=== PATIENT | female | born 1945 | race Caucasian/White ===

== ENCOUNTER 2016-09-06 14:18 | Emergency (ER) | payer OTHER ==
[2016-09-06 14:34] VITALS: TEMP 98.1
--- NOTE | 2016-09-06 14:44 | CPEKG ---
Heart Rate: 61 RR Interval: 984 P-R Interval: 200 QRSD Interval: 82 QT Interval: 388 QTC Interval: 391 P [place]: 62 QRS [place]: -30 T Wave [place]: 37 EKG Severity - OTHERWISE NORMAL ECG - EKG Impression: SINUS RHYTHM EKG Impression: LEFT AXIS DEVIATION Electronically Signed By: Melo Flores 06-Sep-2016 15:27:33
--- NOTE | 2016-09-06 15:25 | EDPHY ---
H & P Stated Complaint: dizzy spell w/ cp Time Seen by Provider: 09/06/16 15:03 HPI/ROS: CHIEF COMPLAINT: Chest pain, presyncope HISTORY OF PRESENT ILLNESS: The patient presents to the emergency department after she developed an episode of left upper chest pain and presyncope earlier today. The patient does have a history of hypertension and has been compliant with her medications. She has had some low blood pressure readings over the past several days. The patient currently denies symptoms. She has had some epigastric discomfort over the past 4-5 days. She denies melena. She denies exertional chest pain. She denies exertional chest pain. The patient's history is somewhat limited by her short term memory loss and cognitive impairment. The patient was seen by her primary care provider reportedly performed a normal EKG in the office and referred the patient to the ED for further evaluation. REVIEW OF SYSTEMS: A comprehensive 10 point review of systems is otherwise negative aside from elements mentioned in the history of present illness. Source: Patient Exam Limitations: No limitations - Personal History Current Tetanus Diphtheria and Acellular Pertussis (TDAP): Unsure - Medical/Surgical History Hx Asthma: No Hx Chronic Respiratory Disease: No Hx Diabetes: No Hx Cardiac Disease: No Hx Renal Disease: No Hx Cirrhosis: No Hx Alcoholism: No Hx HIV/AIDS: No Hx Splenectomy or Spleen Trauma: No Other PMH: PANCREATITIS, CATERACT SURGERY, PAGETT DISEASE, INSOMINIA, hysterectomy, Dementia, HTN - Social History Smoking Status: Former smoker - Physical Exam Exam: General Appearance: Alert, no distress Eyes: Pupils equal and round no pallor or injection ENT, Mouth: Mucous membranes moist Respiratory: There are no retractions, lungs are clear to auscultation Cardiovascular: Regular rate and rhythm Gastrointestinal: Abdomen is soft and nontender, no masses, bowel sounds normal Neurological: A&O, normal motor function, normal sensory exam, normal cranial nerves Skin: Warm and dry, no rashes Musculoskeletal: Neck is supple nontender Extremities: symmetrical, full range of motion Constitutional: Initial Vital Signs Temperature (C) 36.7 C 09/06/16 14:31 Heart Rate 68 09/06/16 14:31 Respiratory Rate 18 09/06/16 14:31 Blood Pressure 145/79 H 09/06/16 14:31 O2 Sat (%) 95 09/06/16 14:31 O2 Delivery Mode Room Air Allergies/Adverse Reactions: Penicillins Allergy (Intermediate, Verified 09/08/15 10:02) cheese Allergy (Verified 09/06/16 14:30) Milk Containing Products [dairy] Allergy (Verified 09/06/16 14:30) Home Medications: Medication Instructions Recorded Herbals/Supplements -Info Only 1 ea PO DAILY 02/01/15 QUEtiapine FUMARATE [Seroquel 25 25 mg PO HS 02/01/15 mg (*)] Lisinopril 09/08/15 Labetalol HCl 09/06/16 Medical Decision Making - Diagnostics EKG Interpretation: EKG: Complete interpretation has been separately recorded in the [employer] archive. Summary impression: Sinus rhythm, no ischemic changes ED Course/Re-evaluation: The patient presents to the ED after an atypical episode of chest pain associated with mild vertigo. The patient's EKG is normal. Troponin is also negative. The patient has no risk factors for coronary artery disease. The patient is comfortable being discharged home and returning for recurrent pain. She would like to follow up with Cardiology for consideration of a treadmill stress test in the next 72 hours for further risk stratification. Differential Diagnosis: Differential diagnosis considered includes acute coronary syndrome, vertigo, pericarditis, myocarditis - Data Points Laboratory Results: Laboratory Results 09/06/16 15:20 09/06/16 15:20 09/06/16 09/06/16 15:20 15:20 WBC 8.72 10^3/uL 10^3/uL (3.80-9.50) RBC 4.53 10^6/uL 10^6/uL (4.18-5.33) Hgb 13.9 g/dL g/dL (12.6-16.3) Hct 42.3 % % (38.0-47.0) MCV 93.4 fL fL (81.5-99.8) MCH 30.7 pg pg (27.9-34.1) MCHC 32.9 g/dL g/dL (32.4-36.7) RDW 13.5 % % (11.5-15.2) Plt Count 237 10^3/uL 10^3/uL (150-400) MPV 12.2 fL H fL (8.7-11.7) Neut % (Auto) 70.1 % % (39.3-74.2) Lymph % (Auto) 14.9 % L % (15.0-45.0) [place] % (Auto) 12.5 % % (4.5-13.0) Eos % (Auto) 1.4 % % (0.6-7.6) Baso % (Auto) 0.9 % % (0.3-1.7) Nucleat RBC Rel Count 0.0 % % (0.0-0.2) Absolute Neuts (auto) 6.11 10^3/uL 10^3/uL (1.70-6.50) Absolute Lymphs (auto) 1.30 10^3/uL 10^3/uL (1.00-3.00) Absolute Monos (auto) 1.09 10^3/uL H 10^3/uL (0.30-0.80) Absolute Eos (auto) 0.12 10^3/uL 10^3/uL (0.03-0.40) Absolute Basos (auto) 0.08 10^3/uL 10^3/uL (0.02-0.10) Absolute Nucleated RBC 0.00 10^3/uL 10^3/uL (0-0.01) Immature Gran % 0.2 % % (0.0-1.1) Immature Gran # 0.02 10^3/uL 10^3/uL (0.00-0.10) Sodium 130 mEq/L L mEq/L (134-144) Potassium 4.9 mEq/L mEq/L (3.5-5.2) Chloride 102 mEq/L mEq/L (97-110) Carbon Dioxide 21 mEq/l L mEq/l (22-31) Anion Gap 7 mEq/L L mEq/L (8-16) BUN 38 mg/dL H mg/dL (7-23) Creatinine 1.3 mg/dL H mg/dL (0.6-1.0) Estimated GFR 40 Glucose 93 mg/dL mg/dL (70-100) Calcium 9.6 mg/dL mg/dL (8.5-10.4) Troponin I < 0.012 ng/mL ng/mL (0-0.034) Medications Given: Discontinued Medications Sodium Chloride (Ns) 1,000 mls @ 0 mls/hr IV ONCE ONE PRN Reason: Wide Open Stop: 09/06/16 16:00 Last Admin: 09/06/16 16:06 Dose: 1,000 mls Departure - Departure Disposition: Home, Routine, Self-Care Clinical Impression: Chest pain Qualifiers: Chest pain type: other chest pain Qualified Code(s): R07.89 - Other chest pain ; R07.8 - Other chest pain Condition: Good Instructions: Chest Pain (ED) Additional Instructions: 1. Based upon the testing done in the Emergency Department today we see no evidence of a heart attack. 2. We are unable to fully exclude coronary artery disease based upon the testing available in the Emergency Department. 3. For this reason, we would like you to be seen by cardiology for consideration of additional testing within the next 3 days. 4. Please contact the washery engineer you have been referred to schedule this appointment as soon as possible. Their offices are typically open from 8:30am- 5pm M-F. 5. Please return to the Emergency Department immediately for any recurrent chest pain, difficulty breathing or other concerns. Referrals: Parish Goodman MD [Primary Care Provider] - As per Instructions Won Burgos MD [Medical Doctor] - As per Instructions
[2016-09-06 15:27] LABS: % IMMATURE GRANULYOCYTES 0.2 % (0.0-1.1); ABSOLUTE IMMATURE GRANULOCYTES 0.02 10^3/uL (0.00-0.10); ADD DIFF? NO; ADD MORPH? NO; ADD SCAN? NO; ATYPICAL LYMPHOCYTE FLAG 0 (0-99); FRAGMENT RBC FLAG 0 (0-99); HEMATOCRIT 42.3 % (38.0-47.0); HEMOGLOBIN 13.9 g/dL (12.6-16.3); LEFT SHIFT FLG 0 (0-99); LIPEMIA HEMOLYSIS FLAG 80 (0-99); MEAN CELL HEMOGLOBIN 30.7 pg (27.9-34.1); MEAN CELL HEMOGLOBIN CONCENTR. 32.9 g/dL (32.4-36.7); MEAN CELL VOLUME 93.4 fL (81.5-99.8); MEAN PLATELET VOLUME 12.2 fL (8.7-11.7); PLATELET CLUMPS FLAG 10 (0-99); PLATELET COUNT 237 10^3/uL (150-400); RED BLOOD CELL COUNT 4.53 10^6/uL (4.18-5.33); RED CELL DISTRIBUTION WIDTH 13.5 % (11.5-15.2)
[2016-09-06 15:43] LABS: ANION GAP 7 mEq/L (8-16); CALCIUM 9.6 mg/dL (8.5-10.4); CARBON DIOXIDE 21 mEq/l (22-31); CHLORIDE 102 mEq/L (97-110); CREATININE 1.3 mg/dL (0.6-1.0); GLOMERULAR FILTRATION RATE 40; GLUCOSE 93 mg/dL (70-100); POTASSIUM 4.9 mEq/L (3.5-5.2); SODIUM 130 mEq/L (134-144)
[2016-09-06 15:55] LABS: TROPONIN I < 0.012 ng/mL (0-0.034)
[2016-09-06] MEDS ORDERED: NS 1,000 ML IV ONE ×2 (15:59)
[2016-09-06 17:03] VITALS: BP 134/80; PULSE 66; RESP 16; O2SAT 96
== END 2016-09-06 17:03 | disposition home or self-care (01) ==
DX: R07.89 Other chest pain (principal); I10 Essential (primary) hypertension; Z87.891 Personal history of nicotine dependence

== ENCOUNTER 2016-11-03 11:13 | Emergency (ER) | payer OTHER ==
[2016-11-03 11:19] VITALS: BP 146/88; PULSE 69; RESP 16; TEMP 97.3; O2SAT 95
--- NOTE | 2016-11-03 11:41 | EDPHY ---
H & P Time Seen by Provider: 11/03/16 11:23 HPI/ROS: HPI: Kate Vasquez is a 71 yrs, female who presents with Chief Complaint: abdominal pain Location: epigastric/RUQ Quality: sharp pain Duration: since last night Signs and Symptoms: no fever, no chills, no chest pain, no SOB, no N/V, no early satiety, no indigestion, no diarrhea Timing: sudden Severity: 6-12/16 Context: medical history of Paget disease. reports last night epigastric/RUQ pain. no related to food intake. eats bland/organic diet. believes it is her gallbladder "acting up." Modifying Factors: apple cider vinegar mild transient relief CT A/P scan reviewed 09/26/15: no GB disease. REVIEW OF SYSTEMS: Constitutional: No fever Eyes: No blurred vision Respiratory: No shortness of breath, no cough Cardiovascular: No chest pain Gastrointestinal: No nausea, no vomiting no diarrhea Genitourinary: No dysuria Extremities: No myalgias Neurologic: No weakness, no numbness Skin: No rashes Hematologic: No bruising, no bleeding Past Medical/Surgical History: Paget disease, insomnia, cataract surgery, hysterectomy. Smoking Status: Former smoker Physical Exam: CONSTITUTIONAL: pleasant well appearing white female, awake and alert, no obvious distress HEENT: Atraumatic and normocephalic, PERRL, EOMI. Tympanic membranes clear. . Oropharynx clear, no exudate and moist pink mucosa. Airway patent. No lymphadenopathy. No meningismus. Cardiovascular: Normal S1/S2, regular rate, regular rhythm, without murmur rub or gallop. PULMONARY/CHEST: Symmetrical and nontender. Clear to auscultation bilaterally Good air movement. No accessory muscle usage. ABDOMEN: Soft, nondistended, mild epigastric/RUQ tenderness to deep palpation, no rebound, no guarding, no peritoneal signs, no masses or organomegaly. No CVAT. EXTREMITIES: 2/2 pulses, no deformities, no clubbing, no cyanosis or edema. NEUROLOGICAL: no focal neuro deficits. GCS 15. SKIN: Warm and dry, no erythema. no rash. Good capillary refill. Constitutional: Initial Vital Signs Temperature (C) 36.3 C 11/03/16 11:17 Heart Rate 69 11/03/16 11:17 Respiratory Rate 16 11/03/16 11:17 Blood Pressure 146/88 H 11/03/16 11:17 O2 Sat (%) 95 11/03/16 11:17 O2 Delivery Mode Room Air Allergies/Adverse Reactions: Penicillins Allergy (Intermediate, Verified 09/08/15 10:02) cheese Allergy (Verified 09/06/16 14:30) Milk Containing Products [dairy] Allergy (Verified 09/06/16 14:30) Home Medications: Medication Instructions Recorded Herbals/Supplements -Info Only 1 ea PO DAILY 02/01/15 QUEtiapine FUMARATE [Seroquel 25 25 mg PO HS 02/01/15 mg (*)] Lisinopril 09/08/15 Labetalol HCl 09/06/16 Medical Decision Making - Diagnostics EKG Interpretation: 12 lead EKG: Indication: abdominal pain Rhythm: sinus rhythm [place]: left borderline QRS: normal ST segments: normal INTERPRETATION: no acute ischemic changes Comparison: no ECG to compare The 12 lead EKG was interpreted by myself. Imaging Results: Imaging Impressions Abdomen CT 11/03/16 11:35 Impression: 1. Constipation. 2. Diverticulosis without evidence of diverticulitis. 3. Additional findings as above. Findings discussed with Mary Ocasio PA-C on November 03, 2016 at 1309 hours. ED Course/Re-evaluation: labs, UA, CT A/P scan afebrile. no systemic signs patient politely declined IV Morphine labs unremarkable spoke with radiologist regarding CT A/P scan and no chanegs from 2016, large stool burden, diverticulosis passed PO trial suspect GERD advised MOM prn, refuses to start H2 amber/PPI; prefers more natural methods patient unable to give UA prior to discharge Differential Diagnosis: Abdominal pain including but not limited to Gallbladder disease, pancreatitis, GERD, appendicitis, cholecystitis, gastritis, constipation and urinary tract infection. - Data Points Laboratory Results: Laboratory Results 11/03/16 12:00 11/03/16 12:00 11/03/16 11/03/16 12:00 12:00 WBC 7.95 10^3/uL 10^3/uL (3.80-9.50) RBC 4.63 10^6/uL 10^6/uL (4.18-5.33) Hgb 14.5 g/dL g/dL (12.6-16.3) Hct 42.3 % % (38.0-47.0) MCV 91.4 fL fL (81.5-99.8) MCH 31.3 pg pg (27.9-34.1) MCHC 34.3 g/dL g/dL (32.4-36.7) RDW 13.3 % % (11.5-15.2) Plt Count 241 10^3/uL 10^3/uL (150-400) MPV 11.2 fL fL (8.7-11.7) Neut % (Auto) 67.0 % % (39.3-74.2) Lymph % (Auto) 17.4 % % (15.0-45.0) [place] % (Auto) 13.6 % H % (4.5-13.0) Eos % (Auto) 1.1 % % (0.6-7.6) Baso % (Auto) 0.6 % % (0.3-1.7) Nucleat RBC Rel Count 0.0 % % (0.0-0.2) Absolute Neuts (auto) 5.33 10^3/uL 10^3/uL (1.70-6.50) Absolute Lymphs (auto) 1.38 10^3/uL 10^3/uL (1.00-3.00) Absolute Monos (auto) 1.08 10^3/uL H 10^3/uL (0.30-0.80) Absolute Eos (auto) 0.09 10^3/uL 10^3/uL (0.03-0.40) Absolute Basos (auto) 0.05 10^3/uL 10^3/uL (0.02-0.10) Absolute Nucleated RBC 0.00 10^3/uL 10^3/uL (0-0.01) Immature Gran % 0.3 % % (0.0-1.1) Immature Gran # 0.02 10^3/uL 10^3/uL (0.00-0.10) Sodium 137 mEq/L mEq/L (134-144) Potassium 4.6 mEq/L mEq/L (3.5-5.2) Chloride 109 mEq/L mEq/L (97-110) Carbon Dioxide 17 mEq/l L mEq/l (22-31) Anion Gap 11 mEq/L mEq/L (8-16) BUN 16 mg/dL mg/dL (7-23) Creatinine 1.0 mg/dL mg/dL (0.6-1.0) Estimated GFR 54 Glucose 96 mg/dL mg/dL (70-100) Calcium 10.1 mg/dL mg/dL (8.5-10.4) Total Bilirubin 0.9 mg/dL mg/dL (0.1-1.4) Conjugated Bilirubin 0.4 mg/dL mg/dL (0.0-0.5) Unconjugated Bilirubin 0.5 mg/dL mg/dL (0.0-1.1) AST 24 IU/L IU/L (14-46) ALT 36 IU/L IU/L (9-52) Alkaline Phosphatase 153 IU/L H IU/L (38-126) Total Protein 7.1 g/dL g/dL (6.3-8.2) Albumin 4.1 g/dL g/dL (3.5-5.0) Lipase 70.0 IU/L IU/L (23-300) Medications Given: Discontinued Medications Morphine Sulfate (Morphine) 2 mg IVP EDNOW ONE Stop: 11/03/16 11:36 Last Admin: 11/03/16 12:30 Dose: Not Given Departure - Departure Disposition: Home, Routine, Self-Care Clinical Impression: Reflux gastritis Constipation Qualifiers: Constipation type: slow transit constipation Qualified Code(s): K59.01 - Slow transit constipation Condition: Good Instructions: Gastroesophageal Reflux Disease (ED) Additional Instructions: Take Maalox and Zantac as needed. If symptoms persist, follow up with PCP. May need EGD. Referrals: Parish Goodman MD [Primary Care Provider] - As per Instructions
[2016-11-03 12:13] LABS: % IMMATURE GRANULYOCYTES 0.3 % (0.0-1.1); ABSOLUTE IMMATURE GRANULOCYTES 0.02 10^3/uL (0.00-0.10); ADD DIFF? NO; ADD MORPH? NO; ADD SCAN? NO; ATYPICAL LYMPHOCYTE FLAG 0 (0-99); FRAGMENT RBC FLAG 0 (0-99); HEMATOCRIT 42.3 % (38.0-47.0); HEMOGLOBIN 14.5 g/dL (12.6-16.3); LEFT SHIFT FLG 0 (0-99); LIPEMIA HEMOLYSIS FLAG 90 (0-99); MEAN CELL HEMOGLOBIN 31.3 pg (27.9-34.1); MEAN CELL HEMOGLOBIN CONCENTR. 34.3 g/dL (32.4-36.7); MEAN CELL VOLUME 91.4 fL (81.5-99.8); MEAN PLATELET VOLUME 11.2 fL (8.7-11.7); PLATELET CLUMPS FLAG 0 (0-99); PLATELET COUNT 241 10^3/uL (150-400); RED BLOOD CELL COUNT 4.63 10^6/uL (4.18-5.33); RED CELL DISTRIBUTION WIDTH 13.3 % (11.5-15.2)
--- NOTE | 2016-11-03 12:21 | CPEKG ---
Heart Rate: 57 RR Interval: 1053 P-R Interval: 212 QRSD Interval: 82 QT Interval: 404 QTC Interval: 394 P [place]: 63 QRS [place]: -33 T Wave [place]: 44 EKG Severity - OTHERWISE NORMAL ECG - EKG Impression: SINUS RHYTHM EKG Impression: LEFT AXIS DEVIATION Electronically Signed By: No Cruz 03-Nov-2016 14:47:21
[2016-11-03 12:32] LABS: ALANINE AMINOTRANSFERASE 36 IU/L (9-52); ALBUMIN 4.1 g/dL (3.5-5.0); ALKALINE PHOSPHATASE 153 IU/L (38-126); ANION GAP 11 mEq/L (8-16); ASPARTATE AMINOTRANSFERASE 24 IU/L (14-46); BILIRUBIN,TOTAL 0.9 mg/dL (0.1-1.4); BILIRUBIN-CONJUGATED 0.4 mg/dL (0.0-0.5); BILIRUBIN-UNCONJUGATED 0.5 mg/dL (0.0-1.1); CALCIUM 10.1 mg/dL (8.5-10.4); CARBON DIOXIDE 17 mEq/l (22-31); CHLORIDE 109 mEq/L (97-110); GLOMERULAR FILTRATION RATE 54; GLUCOSE 96 mg/dL (70-100); POTASSIUM 4.6 mEq/L (3.5-5.2); SODIUM 137 mEq/L (134-144); TOTAL PROTEIN 7.1 g/dL (6.3-8.2)
[2016-11-03] MEDS ORDERED: IOPAMIDOL (ISOVUE-300) 100 ML BTL ONE (12:33)
== END 2016-11-03 13:47 | disposition home or self-care (01) ==
DX: K21.9 Gastro-esophageal reflux disease without esophagitis (principal); K29.70 Gastritis, unspecified, without bleeding; K59.01 Slow transit constipation; Z87.891 Personal history of nicotine dependence; Z90.710 Acquired absence of both cervix and uterus
CPT/HCPCS: 74177; 93005; 99285; Q9967

== ENCOUNTER 2017-07-23 10:59 | Emergency (ER) | payer OTHER ==
--- NOTE | 2017-07-23 12:20 | EDPHY ---
H & P Time Seen by Provider: 07/23/17 11:57 HPI/ROS: Chief complaint. Urinary incontinence HPI. Patient is a 71-year-old female with chronic back pain. She has had 2 episodes abrupt urinary incontinence in the last 3 days. No pain or burning with urination. No fever. She has a history of"screwed up spine". Apparently she has had Paget's disease in the past. She has chronic paresthesias to the bottom of her feet but no new weakness or numbness to her legs. No stool incontinence. Really no increase or change in her low back pain. She has never had urinary incontinence like this previously. ROS Constitutional. no fever/chills, no weakness Eyes. no problems with vision ENT. no sore throat, no nasal drainage Cardiovascular. no chest pain Respiratory. no shortness of breath, no cough Abdominal. no abdominal pain, no nausea/vomiting, no diarrhea . Urinary incontinence MS. no calf pain/swelling, chronic low back pain Skin. no rash Lymph. no swollen glands Neuro. no headache, no dizziness, no difficulty walking or with speech Past Medical/Surgical History: Past medical history significant pancreatitis, cataract surgery, Paget's disease , insomnia, dementia, hypertension Social History: Single, nonsmoker, no Smoking Status: Former smoker Physical Exam: General Appearance: Alert well-developed female mild distress vital signs are stable Eyes: Pupils equal and round no pallor or injection. ENT, Mouth: Mucous membranes are moist. Respiratory: There are no retractions, lungs are clear to auscultation. Cardiovascular: Regular rate and rhythm. Gastrointestinal: Abdomen is soft and nontender, no masses, bowel sounds normal. Neurological: Awake and alert, sensory and motor exams grossly normal. Deep tendon reflexes are symmetrical. Great toe strength is normal. Negative straight leg raising to 30 degrees bilaterally. No saddle anesthesia Skin: Warm and dry, no rashes. Musculoskeletal: Neck is supple nontender. Mild diffuse low back pain. Extremities symmetrical, full range of motion. Psychiatric: Patient is oriented X 3, there is no agitation. Constitutional: Initial Vital Signs Temperature (C) 36.3 C 07/23/17 11:03 Heart Rate 71 07/23/17 11:03 Respiratory Rate 17 07/23/17 11:03 Blood Pressure 152/90 H 07/23/17 11:03 O2 Sat (%) 92 07/23/17 11:03 O2 Delivery Mode Room Air Allergies/Adverse Reactions: Penicillins Allergy (Intermediate, Verified 09/08/15 10:02) cheese Allergy (Verified 09/06/16 14:30) Milk Containing Products [dairy] Allergy (Verified 09/06/16 14:30) Home Medications: Medication Instructions Recorded Herbals/Supplements -Info Only 1 ea PO DAILY 02/01/15 QUEtiapine FUMARATE [Seroquel 25 25 mg PO HS 02/01/15 mg (*)] Lisinopril 09/08/15 Labetalol HCl 09/06/16 Cephalexin [Keflex (*)] 500 mg PO TID #21 cap 07/23/17 Medical Decision Making - Diagnostics Imaging Results: Imaging Impressions Lumbar Spine MRI 07/23/17 12:20 Impression: 1. Previous bony fusion from T12 through S1 with mild reversal of the normal lordosis. 2. Mild disk bulges without significant consequences as detailed above. 3. 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 Findings discussed with Abhi Presley M.D. at 14:27 hour, 07/23/2017. MRI shows no evidence of cauda equina syndrome. I reviewed the MRI and discussed with Dr. De La Rosa Procedures: Urinalysis shows mild urinary tract infection findings. It is sent for culture and sensitivity ED Course/Re-evaluation: Re-evaluation at 3:25 p.m.. Patient and I discussed imaging study results, laboratory evaluation and possibility of urinary tract infection. We discussed treatment plan including criteria for return and importance of follow-up and further evaluation. She expresses understanding and agreement Differential Diagnosis: I considered cauda equina syndrome, UTI, pyelonephritis - Data Points Laboratory Results: 07/23/17 11:00 Urine Color COLORLESS Urine Appearance CLEAR Urine pH 5.0 (5.0-7.5) Ur Specific [place] 1.002 (1.002-1.030) Urine Protein NEGATIVE (NEGATIVE) Urine Ketones NEGATIVE (NEGATIVE) Urine Blood NEGATIVE (NEGATIVE) Urine Nitrate NEGATIVE (NEGATIVE) Urine Bilirubin NEGATIVE (NEGATIVE) Urine Urobilinogen NEGATIVE EU EU (0.2-1.0) Ur Leukocyte Esterase TRACE H (NEGATIVE) Urine RBC 1-3 /hpf /hpf (0-3) Urine WBC 5-10 /hpf H /hpf (0-3) Ur Epithelial Cells NONE SEEN /lpf /lpf (NONE-1+) Urine Bacteria TRACE /hpf H /hpf (NONE SEEN) Urine Glucose NEGATIVE (NEGATIVE) Departure - Departure Disposition: Home, Routine, Self-Care Clinical Impression: Urinary tract infection Qualifiers: Urinary tract infection type: site unspecified Hematuria presence: without hematuria Qualified Code(s): N39.0 - Urinary tract infection, site not specified Condition: Good Instructions: Urinary Tract Infection in Women (ED) Additional Instructions: Cephalexin is antibiotic. Return for worsening symptoms including leg weakness , worsening bowel or bladder symptoms. Recheck with Dr. Cantu on Tuesday Referrals: Babak Cantu MD [Primary Care Provider] - 2-3 days without fail Prescriptions: Cephalexin [Keflex (*)] 500 mg PO TID #21 cap
[2017-07-23 15:41] VITALS: BP 157/87; PULSE 77; RESP 12; TEMP 97.5; O2SAT 94
== END 2017-07-23 15:41 | disposition home or self-care (01) ==
DX: N39.0 Urinary tract infection, site not specified (principal); B96.20 Unspecified Escherichia coli [E. coli] as the cause of diseases classified elsewhere; I10 Essential (primary) hypertension; Z87.891 Personal history of nicotine dependence

== ENCOUNTER → 2017-09-13 | Outpatient (CLI) | payer OTHER | LOC: FIMAGING 15:24 | PROVIDERS: ATTEND Family Medicine Sports Medicine | DX: M51.34 Other intervertebral disc degeneration, thoracic region (principal); M43.16 Spondylolisthesis, lumbar region ==

== ENCOUNTER 2017-10-03 22:36 | Emergency (ER) | payer OTHER ==
--- NOTE | 2017-10-03 23:06 | CPEKG ---
Heart Rate: 64 RR Interval: 938 P-R Interval: 212 QRSD Interval: 82 QT Interval: 380 QTC Interval: 392 P [place]: 68 QRS [place]: -31 T Wave [place]: 45 EKG Severity - BORDERLINE ECG - EKG Impression: SINUS RHYTHM EKG Impression: LEFT AXIS DEVIATION EKG Impression: BORDERLINE T ABNORMALITIES, ANTERIOR LEADS Electronically Signed By: Zion Tijerina 05-Oct-2017 11:57:06
[2017-10-03 23:42] LABS: PLATELET COUNT 252 10^3/uL (150-400)
--- NOTE | 2017-10-04 00:21 | EDPHY ---
H & P Stated Complaint: high BP Time Seen by Provider: 10/03/17 23:01 HPI/ROS: HPI The patient presents with elevated blood pressure reading a few hours prior to presentation. The value was 170 systolic. The patient is currently taking lisinopril though does not blood monitor her blood pressure frequently. She believes she last checked at about 8 weeks ago. Today she was feeling off and was wondering if she was having a "bad dementia day". She has had increased thirst and dry mouth. She has also not had much energy and not felt hungry. When she was watching a video on her computer she felt as if the room was tilting, this lasted for a few seconds and then improved. She also is complaining of pain which she localizes to her diaphragm which she describes as a sharp right-sided pain which comes and goes for the last 1 day. She has had this pain previously. She does not have any shortness of breath, nausea, vomiting, dizziness, diaphoresis. REVIEW OF SYSTEMS Constitutional: No fever, no chills. Eyes: No discharge. ENT: No sore throat. Cardiovascular: Chest tightness present, no palpitations. Respiratory: No cough, no shortness of breath. Gastrointestinal: No abdominal pain, no vomiting. Genitourinary: No hematuria. Musculoskeletal: No back pain. Skin: No rashes. Neurological: No headache. PMHx: History of dementia, history of hypertension Soc Hx: Housed independently, does not drive PHYSICAL General Appearance: Alert, no distress Eyes: Pupils equal and round no pallor or injection ENT, Mouth: Mucous membranes moist Respiratory: There are no retractions, lungs are clear to auscultation Cardiovascular: Regular rate and rhythm Gastrointestinal: Abdomen is soft and non-tender, no masses, bowel sounds normal Neurological: A&O, cranial nerves 2-12 intact, 5/5 strength in upper and lower extremities which is symmetric, no nystagmus is present Skin: Warm and dry, no rashes Musculoskeletal: Neck is supple non tender Extremities: symmetrical, full range of motion Psychiatric: Patient is oriented X 3, there is no agitation Source: Patient Exam Limitations: No limitations - Medical/Surgical History Hx Asthma: No Hx Chronic Respiratory Disease: No Hx Diabetes: No Hx Cardiac Disease: No Hx Renal Disease: No Hx Cirrhosis: No Hx Alcoholism: No Hx HIV/AIDS: No Hx Splenectomy or Spleen Trauma: No Other PMH: PANCREATITIS, CATERACT SURGERY, PAGETT DISEASE, INSOMINIA, hysterectomy, Dementia, HTN - Social History Smoking Status: Former smoker Constitutional: Initial Vital Signs Temperature (C) 36.6 C 10/03/17 22:40 Heart Rate 73 10/03/17 22:40 Respiratory Rate 20 10/03/17 22:40 Blood Pressure 173/103 H 10/03/17 22:40 O2 Sat (%) 92 10/03/17 22:40 O2 Delivery Mode Room Air Allergies/Adverse Reactions: Penicillins Allergy (Intermediate, Verified 10/03/17 22:39) cheese Allergy (Verified 10/03/17 22:39) Milk Containing Products [dairy] Allergy (Verified 10/03/17 22:39) Home Medications: Medication Instructions Recorded Herbals/Supplements -Info Only 1 ea PO DAILY 02/01/15 QUEtiapine FUMARATE [Seroquel 25 25 mg PO HS 02/01/15 mg (*)] Lisinopril 09/08/15 Labetalol HCl 09/06/16 Cephalexin [Keflex (*)] 500 mg PO TID #21 cap 07/23/17 Medical Decision Making - Diagnostics EKG Interpretation: EKG: Complete interpretation has been separately recorded in the [employer] archive. Summary impression: Normal sinus rhythm, T-wave flattening in V2 and V3 Differential Diagnosis: This is a 72-year-old female with history of hypertension who presents with elevated blood pressure reading today as high as 170 systolic. She checked her blood pressure because she was feeling off today with mild dizziness, dry mouth , some mild lethargy. Since her arrival in the emergency department, her blood pressure has improved. On exam, she has no neurologic deficits, she is not having any ongoing chest tightness. EKG was obtained which showed no ST segment changes suggestive of SC. Troponin was checked and was undetectable. Basic labs including creatinine were normal. Her blood pressures improved to upon discharge. She had no ongoing symptoms. I suspect the chest tightness she is having is due to muscle strain versus costochondritis and I have explained this to her. I doubt ACS given normal EKG and troponin. There is no sign of hypertensive emergency given no abdominal pain, severe headache, neurologic deficit, ongoing chest pain. She is suitable for discharge. I have advised her to follow up with her primary care doctor and in fact she does have an appointment already scheduled for tomorrow. - Data Points Laboratory Results: Laboratory Results 10/03/17 23:30 10/03/17 23:30 10/03/17 10/03/17 23:30 23:30 WBC 7.27 10^3/uL 10^3/uL (3.80-9.50) RBC 4.40 10^6/uL 10^6/uL (4.18-5.33) Hgb 13.6 g/dL g/dL (12.6-16.3) Hct 40.5 % % (38.0-47.0) MCV 92.0 fL fL (81.5-99.8) MCH 30.9 pg pg (27.9-34.1) MCHC 33.6 g/dL g/dL (32.4-36.7) RDW 13.7 % % (11.5-15.2) Plt Count 252 10^3/uL 10^3/uL (150-400) MPV 11.1 fL fL (8.7-11.7) Neut % (Auto) 61.6 % % (39.3-74.2) Lymph % (Auto) 18.6 % % (15.0-45.0) [place] % (Auto) 16.2 % H % (4.5-13.0) Eos % (Auto) 2.2 % % (0.6-7.6) Baso % (Auto) 0.8 % % (0.3-1.7) Nucleat RBC Rel Count 0.0 % % (0.0-0.2) Absolute Neuts (auto) 4.48 10^3/uL 10^3/uL (1.70-6.50) Absolute Lymphs (auto) 1.35 10^3/uL 10^3/uL (1.00-3.00) Absolute Monos (auto) 1.18 10^3/uL H 10^3/uL (0.30-0.80) Absolute Eos (auto) 0.16 10^3/uL 10^3/uL (0.03-0.40) Absolute Basos (auto) 0.06 10^3/uL 10^3/uL (0.02-0.10) Absolute Nucleated RBC 0.00 10^3/uL 10^3/uL (0-0.01) Immature Gran % 0.6 % % (0.0-1.1) Immature Gran # 0.04 10^3/uL 10^3/uL (0.00-0.10) Sodium 137 mEq/L mEq/L (135-145) Potassium 4.3 mEq/L mEq/L (3.3-5.0) Chloride 107 mEq/L mEq/L (97-110) Carbon Dioxide 18 mEq/l L mEq/l (22-31) Anion Gap 12 mEq/L mEq/L (8-16) BUN 23 mg/dL mg/dL (7-23) Creatinine 0.9 mg/dL mg/dL (0.6-1.0) Estimated GFR > 60 Glucose 99 mg/dL mg/dL (70-100) Calcium 9.5 mg/dL mg/dL (8.5-10.4) Total Bilirubin 0.4 mg/dL mg/dL (0.1-1.4) AST 29 IU/L IU/L (14-46) ALT 39 IU/L IU/L (9-52) Alkaline Phosphatase 181 IU/L H IU/L (38-126) Troponin I < 0.012 ng/mL ng/mL (0.000-0.034) Total Protein 6.3 g/dL g/dL (6.3-8.2) Albumin 3.6 g/dL g/dL (3.5-5.0) Departure - Departure Disposition: Home, Routine, Self-Care Clinical Impression: Elevated blood pressure reading, Dizziness Condition: Good Instructions: Chronic Hypertension (ED) Additional Instructions: Please return to the emergency department if you're worse in any way. You should follow up with your regular doctor in 1-2 days. Referrals: Babak Cantu MD [Primary Care Provider] - As per Instructions
[2017-10-04 00:24] VITALS: BP 130/74
== END 2017-10-04 00:32 | disposition home or self-care (01) ==
DX: I10 Essential (primary) hypertension (principal); R42 Dizziness and giddiness; Z87.891 Personal history of nicotine dependence

== ENCOUNTER → 2018-06-06 | Outpatient (CLI) | payer OTHER | LOC: FIMAGING 11:14 | PROVIDERS: ATTEND Physician Assistant | DX: R10.10 Upper abdominal pain, unspecified (principal) | CPT/HCPCS: 78227; A9537 ==

== ENCOUNTER → 2018-06-13 | Outpatient (CLI) | payer OTHER | LOC: FIMAGING 16:31 | PROVIDERS: ATTEND Family Medicine Sports Medicine | DX: K59.00 Constipation, unspecified (principal) ==

== ENCOUNTER 2018-06-20 09:36 | Emergency (ER) | payer OTHER ==
[2018-06-20] MEDS ORDERED: HYDROmorphONE/DILAUDID 2 MG/ML INJ IVP ONE (10:04)
[2018-06-20] MEDS ORDERED: ONDANSETRON 4 MG/2 ML VIAL IVP ONE (10:04)
[2018-06-20] MEDS ORDERED: NS 1,000 ML IV ONE (10:04)
--- NOTE | 2018-06-20 10:04 | EDPHY ---
H & P Time Seen by Provider: 06/20/18 09:55 HPI/ROS: HPI Right upper quadrant abdominal pain. 72-year-old female by private vehicle. She has had ongoing intermittent right upper quadrant abdominal pain for about a month now. She had a HIDA scan done through [facility] about 3 weeks ago. This study was negative. She has had continued right upper quadrant pain. Her gallbladder is still in. She presents to the emergency department complaining of the typical right upper quadrant abdominal pain she has been experiencing onset at about 3: 00 a.m. this morning. She has had some nausea but no vomiting. She did eat breakfast at about 7:30 a.m.. She describes the pain as cramping and sharp originating subcostal right upper quadrant abdomen and radiating around to her right flank. Denies any urinary complaints. ROS: Constitutional: No fever, no chills. No weakness. Eyes: No discharge. No changes in vision. ENT: No sore throat. No nasal congestion or rhinorrhea. Respiratory: No cough. No shortness of breath. Cardiac: No chest pain, no palpitations. Gastrointestinal: As above, no vomiting, no diarrhea. Genitourinary: No hematuria. No dysuria or increased frequency with urination. Musculoskeletal: No back pain. No neck pain. No myalgias or arthralgias. Skin: No rashes. Neurological: No headache. No focal weakness or altered sensation. Past medical history: Pancreatitis, cataract surgery, Paget's disease, insomnia , hysterectomy, hypertension, dementia, as above. Social history: Nonsmoker. No alcohol. Here by herself. Physical Exam: General Appearance: Alert, she appears uncomfortable but not in distress. This patient is responding to questions appropriately and in full sentences. This patient appears well-hydrated and well-nourished. Eyes: Pupils equal and round no pallor or injection. No lid edema, erythema or injection. ENT, Mouth: Mucous membranes are moist. The pharyngeal tissues are unremarkable. No edema or swelling. No asymmetry suggestive of abscess. No erythema or exudates. Respiratory: There are no retractions, lungs are clear to auscultation with good air movement bilaterally. Cardiovascular: Regular rate and rhythm. No murmur. Gastrointestinal: Abdomen is soft with vague subcostal and right upper quadrant tenderness on palpation, no masses, bowel sounds normal. No focal tenderness at McBurney's point. No Doan sign. Neurological: Motor sensory function is grossly intact. Cranial nerves are normal. Gait is normal. Skin: Warm and dry, no rashes. Musculoskeletal: Neck is supple and nontender. Extremities are symmetrical. All joints range without pain or impingement. Psychiatric: No agitation. No depression. Database: EKG: Imaging: Right upper quadrant ultrasound: Negative study. Results were discussed with staff radiologist Dr. Crooks. Chest x-ray PA and lateral; the cardiac mediastinal silhouette is unremarkable. No evidence of infiltrate or pneumothorax. No acute cardiopulmonary disease process noted. Interpreted by me. Procedures: Emergency department course: Triage vital signs reviewed. She is mildly hypertensive. Triage vital signs are otherwise normal. IV was placed. She was started on IV normal saline with 500 cc to be given over the next hour. She will be given 0.5 mg of IV hydromorphone as needed for pain. She will be given 4 mg of IV Zofran. Right upper quadrant ultrasound and chest x-ray to be obtained. Patient consents to workup. 11:20 a.m., the patient was re-evaluated, she is resting comfortably at this time. Repeat abdominal exam she is soft, nontender and nondistended. She does not have any CVA tenderness on palpation. Her workup has been reassuring. I discussed the results of her workup in detail with her. At this time she feels comfortable going home and I feel she is safe for discharge. Plan will be to have her follow up with her primary care physician tomorrow for re-evaluation and possible specialist referral. She had a HIDA scan 3 weeks ago which was negative. She will go by her primary care physician's office which is right next door to the emergency department on her way home and schedule an appointment. Return to emergency department precautions were thoroughly reviewed with her. All of her questions were answered. She was discharged from the emergency department in good condition. Differential Diagnosis: The differential diagnosis on this patient includes but is not limited to biliary colic, cholecystitis, pancreatitis, pneumonia, pulmonary embolism, ureterolithiasis. This represents a partial list of diagnoses considered. These considerations are based on history, physical exam, past history, reassessment and diagnostic testing. Smoking Status: Former smoker Constitutional: Initial Vital Signs Temperature (C) 36.2 C 06/20/18 09:40 Heart Rate 65 02/12/19 09:40 Respiratory Rate 19 06/20/18 09:40 Blood Pressure 145/72 H 06/20/18 09:40 O2 Sat (%) 97 06/20/18 09:40 O2 Delivery Mode Room Air Allergies/Adverse Reactions: Penicillins Allergy (Intermediate, Verified 11/27/17 11:06) cheese Allergy (Verified 11/27/17 11:06) Milk Containing Products [dairy] Allergy (Verified 11/27/17 11:06) Home Medications: Medication Instructions Recorded Herbals/Supplements -Info Only 1 ea PO DAILY 02/01/15 QUEtiapine FUMARATE [Seroquel 25 25 mg PO HS 02/01/15 mg (*)] Lisinopril 09/08/15 Labetalol HCl 09/06/16 Medical Decision Making - Data Points Laboratory Results: Laboratory Results 06/20/18 10:20 06/20/18 10:20 Medications Given: Discontinued Medications Hydromorphone HCl (Dilaudid) 0.5 mg IVP EDNOW ONE Stop: 06/20/18 10:05 Last Admin: 06/20/18 10:27 Dose: 0.5 mg Sodium Chloride (Ns) 1,000 mls @ 0 mls/hr IV EDNOW ONE; Wide Open PRN Reason: Protocol Stop: 06/20/18 10:05 Last Admin: 06/20/18 10:27 Dose: 1,000 mls Ondansetron HCl (Zofran) 4 mg IVP EDNOW ONE Stop: 06/20/18 10:05 Last Admin: 06/20/18 10:27 Dose: 4 mg Departure - Departure Disposition: Home, Routine, Self-Care Clinical Impression: Right upper quadrant abdominal pain Condition: Good Instructions: Abdominal Pain (ED) Additional Instructions: Read and follow provided instructions. Follow-up with your primary care physician in 1-2 days for re-evaluation as discussed. Make your appointment today as discussed. Continue your medications as prescribed. Return to the emergency department for worsening pain, fever, vomiting, blood in your stool or other serious concerns. Referrals: Babak Cantu MD [Primary Care Provider] - As per Instructions
[2018-06-20 10:44] LABS: PLATELET COUNT 260 10^3/uL (150-400)
[2018-06-20 11:22] VITALS: BP 160/77
== END 2018-06-20 11:38 | disposition home or self-care (01) ==
DX: R10.11 Right upper quadrant pain (principal); E86.9 Volume depletion, unspecified
CPT/HCPCS: 71046; 76705; 96361; 96374; 96375; 99285; J1170; J2405

== ENCOUNTER → 2018-07-27 | Outpatient (CLI) | payer OTHER | LOC: FIMAGING 14:04 | PROVIDERS: ATTEND Family Medicine Sports Medicine | DX: E53.8 Deficiency of other specified B group vitamins (principal); K58.9 Irritable bowel syndrome, unspecified; M48.061 Spinal stenosis, lumbar region without neurogenic claudication; M85.80 Other specified disorders of bone density and structure, unspecified site; Z98.1 Arthrodesis status ==

== ENCOUNTER → 2018-09-08 | Outpatient (CLI) | payer OTHER | LOC: FIMAGING 12:38 | PROVIDERS: ATTEND Clinical Nurse Specialist Adult Health | DX: K76.89 Other specified diseases of liver (principal); N20.0 Calculus of kidney ==

== ENCOUNTER 2018-09-27 19:00 | Observation (INO) | payer OTHER ==
[2018-09-27] MEDS ORDERED: LABETALOL HCL 5 MG/ML 20 ML MDV IVP ONE (19:31)
--- NOTE | 2018-09-27 19:34 | EDPHY ---
H & P Stated Complaint: sent by PCP for high BP, right sided chest and arm pain Time Seen by Provider: 09/27/18 19:11 HPI/ROS: CHIEF COMPLAINT: Elevated blood pressure, chest pain, back pain, episode of confusion this morning HISTORY OF PRESENT ILLNESS: The patient has a history of hypertension. She presents to the ED with elevated blood pressure today at home, complaints of right-sided chest pain which radiates to her mid scapular region and episode of confusion this morning. The patient does have a history of taking lisinopril and recently was given labetalol. She took labetalol for a few days and then stop taking it secondary to fatigue and decreased energy. The patient denies any acute headache, unilateral numbness or weakness or additional complaints. The patient took her blood pressure home tonight and was 200/100 which prompted her referral to the emergency department. The patient continues to complain of ongoing mild right-sided pain. REVIEW OF SYSTEMS: A comprehensive 10 point review of systems is otherwise negative aside from elements mentioned in the history of present illness. Source: Patient - Personal History Current Tetanus Diphtheria and Acellular Pertussis (TDAP): Unsure - Medical/Surgical History Hx Asthma: Yes Hx Chronic Respiratory Disease: No Hx Diabetes: No Hx Cardiac Disease: No Hx Renal Disease: No Hx Cirrhosis: No Hx Alcoholism: No Hx HIV/AIDS: No Hx Splenectomy or Spleen Trauma: No Other PMH: PANCREATITIS, CATERACT SURGERY, PAGETT DISEASE, INSOMINIA, hysterectomy, Dementia, HTN - Social History Smoking Status: Former smoker - Physical Exam Exam: General Appearance: Alert, no distress Eyes: Pupils equal and round no pallor or injection ENT, Mouth: Mucous membranes moist Respiratory: There are no retractions, lungs are clear to auscultation Cardiovascular: Regular rate and rhythm Gastrointestinal: Abdomen is soft and nontender, no masses, bowel sounds normal Neurological: A&O, normal motor function, normal sensory exam, normal cranial nerves Skin: Warm and dry, no rashes Musculoskeletal: Neck is supple nontender Extremities: symmetrical, full range of motion Constitutional: Initial Vital Signs Temperature (C) 36.7 C 09/27/18 19:05 Heart Rate 85 09/27/18 19:05 Respiratory Rate 20 09/27/18 19:05 Blood Pressure 219/105 H 09/27/18 19:05 O2 Sat (%) 94 09/27/18 19:05 O2 Delivery Mode Room Air Allergies/Adverse Reactions: Penicillins Allergy (Intermediate, Verified 09/27/18 19:04) cheese Allergy (Verified 09/27/18 19:04) Milk Containing Products [dairy] Allergy (Verified 09/27/18 19:04) Home Medications: Medication Instructions Recorded Herbals/Supplements -Info Only 1 ea PO DAILY 02/01/15 QUEtiapine FUMARATE [Seroquel 25 25 mg PO HS 02/01/15 mg (*)] Lisinopril 09/08/15 Labetalol HCl 09/06/16 Medical Decision Making - Diagnostics EKG Interpretation: EKG: Complete interpretation has been separately recorded in the [employer] archive. Summary impression: Sinus rhythm, rate 73 Imaging Results: Imaging Impressions Chest X-Ray 09/27/18 19:32 Impression: Senescent changes of lung with left midlung diskoid atelectasis or scarring. Chest/Thorax CTA 09/27/18 19:46 Impression: 1. Negative for aortic dissection or aneurysm. There is mild atherosclerotic disease. Likely trivial narrowing of the proximal subclavian artery probably related to spasm. 2. Mild cardiomegaly. Clear lungs. 3. Mild interval enlargement of a right thyroid nodule. Given biopsy results were inconclusive a few years ago, recommend follow-up ultrasound and possible rebiopsy. Findings and recommendations discussed with Melo Flores at 2015 hour, 09/27. ED Course/Re-evaluation: Patient presents to the ED with hypertension and concerning complaints. The patient was taken for a stat CT scan of the chest which demonstrates no evidence of an aortic dissection or pulmonary embolism. The patient's initial hypertension was treated with 20 mg of IV labetalol. The patient's EKG demonstrates no evidence of ischemia and her troponin is normal. Blood pressure currently 190/80. 5 mg of Norvasc has been ordered. I do feel the patient should be admitted to the hospital in a setting of her acute chest pain and hypertension. The patient has no evidence of a stroke syndrome in the emergency department. Consultation was made with Dr. Chow from the hospitalist service. The patient will be admitted to the PCU this evening. I re-evaluated the patient at 8:30 p.m. Informing her of the workup and plan for admission for blood pressure control, rule out myocardial infarction and close observation. Differential Diagnosis: Differential diagnosis considered includes aortic dissection, acute coronary syndrome, hypertensive emergency, renal failure - Data Points Laboratory Results: Laboratory Results 09/27/18 19:35 09/27/18 19:35 09/27/18 09/27/18 09/27/18 19:48 19:45 19:35 WBC RBC Hgb POC Hgb 15.3 gm/dL gm/dL (12.6-16.3) Hct POC Hct 45 % % (38-47) MCV MCH MCHC RDW Plt Count MPV Neut % (Auto) Lymph % (Auto) [place] % (Auto) Eos % (Auto) Baso % (Auto) Nucleat RBC Rel Count Absolute Neuts (auto) Absolute Lymphs (auto) Absolute Monos (auto) Absolute Eos (auto) Absolute Basos (auto) Absolute Nucleated RBC Immature Gran % Immature Gran # PT INR APTT POC Sodium 143 mEq/L mEq/L (135-145) Sodium 139 mEq/L mEq/L (135-145) POC Potassium 3.6 mEq/L mEq/L (3.3-5.0) Potassium 3.8 mEq/L mEq/L (3.5-5.2) POC Chloride 108 mEq/L mEq/L (97-110) Chloride 108 mEq/L mEq/L (97-110) Carbon Dioxide 21 mEq/l L mEq/l (22-31) POC Total CO2 23 mEq/L mEq/L (22-31) Anion Gap 10 mEq/L mEq/L (6-14) POC BUN 18 mg/dL mg/dL (7-23) BUN 19 mg/dL mg/dL (7-23) Creatinine 1.0 mg/dL mg/dL (0.6-1.0) POC Creatinine 1.0 mg/dL mg/dL (0.6-1.0) Estimated GFR 54 Glucose 93 mg/dL mg/dL (70-100) POC Glucose 95 mg/dL mg/dL (70-100) Calcium 9.5 mg/dL mg/dL (8.5-10.4) POC Troponin I 0.01 ng/mL ng/mL (0.00-0.08) 09/27/18 09/27/18 19:35 19:35 WBC 7.74 10^3/uL 10^3/uL (3.80-9.50) RBC 4.83 10^6/uL 10^6/uL (4.18-5.33) Hgb 14.8 g/dL g/dL (12.6-16.3) POC Hgb Hct 44.1 % % (38.0-47.0) POC Hct MCV 91.3 fL fL (81.5-99.8) MCH 30.6 pg pg (27.9-34.1) MCHC 33.6 g/dL g/dL (32.4-36.7) RDW 13.4 % % (11.5-15.2) Plt Count 281 10^3/uL 10^3/uL (150-400) MPV 11.2 fL fL (8.7-11.7) Neut % (Auto) 68.7 % % (39.3-74.2) Lymph % (Auto) 18.1 % % (15.0-45.0) [place] % (Auto) 11.0 % % (4.5-13.0) Eos % (Auto) 1.2 % % (0.6-7.6) Baso % (Auto) 0.6 % % (0.3-1.7) Nucleat RBC Rel Count 0.0 % % (0.0-0.2) Absolute Neuts (auto) 5.32 10^3/uL 10^3/uL (1.70-6.50) Absolute Lymphs (auto) 1.40 10^3/uL 10^3/uL (1.00-3.00) Absolute Monos (auto) 0.85 10^3/uL H 10^3/uL (0.30-0.80) Absolute Eos (auto) 0.09 10^3/uL 10^3/uL (0.03-0.40) Absolute Basos (auto) 0.05 10^3/uL 10^3/uL (0.02-0.10) Absolute Nucleated RBC 0.00 10^3/uL 10^3/uL (0-0.01) Immature Gran % 0.4 % % (0.0-1.1) Immature Gran # 0.03 10^3/uL 10^3/uL (0.00-0.10) PT 12.8 SEC SEC (12.0-15.0) INR 1.00 (0.83-1.16) APTT 33.0 SEC SEC (23.0-38.0) POC Sodium Sodium POC Potassium Potassium POC Chloride Chloride Carbon Dioxide POC Total CO2 Anion Gap POC BUN BUN Creatinine POC Creatinine Estimated GFR Glucose POC Glucose Calcium POC Troponin I Medications Given: Discontinued Medications Labetalol HCl (Trandate Injection) 20 mg IVP EDNOW ONE Stop: 09/27/18 19:32 Last Admin: 09/27/18 19:44 Dose: 20 mg Point of Care Test Results: Chemistry 09/27/18 09/27/18 19:48 19:45 POC Sodium 143 mEq/L mEq/L (135-145) POC Potassium 3.6 mEq/L mEq/L (3.3-5.0) POC Chloride 108 mEq/L mEq/L (97-110) POC Total CO2 23 mEq/L mEq/L (22-31) POC BUN 18 mg/dL mg/dL (7-23) POC Creatinine 1.0 mg/dL mg/dL (0.6-1.0) POC Glucose 95 mg/dL mg/dL (70-100) POC Troponin I 0.01 ng/mL ng/mL (0.00-0.08) ISTAT H&H 09/27/18 19:48 POC Hgb 15.3 gm/dL gm/dL (12.6-16.3) POC Hct 45 % % (38-47) Departure - Departure Disposition: [facility] Inpatient Acute Clinical Impression: Chest pain, Hypertension Condition: Good Referrals: Marla Falk PA [Primary Care Provider] - As per Instructions
--- NOTE | 2018-09-27 19:35 | CPEKG ---
Test Reason : OPEN Blood Pressure : / mmHG Vent. Rate : 073 BPM Atrial Rate : 073 BPM P-R Int : 199 ms QRS Dur : 085 ms QT Int : 368 ms P-R-T Axes : 060 -40 031 degrees QTc Int : 406 ms Sinus rhythm Probable left atrial enlargement Inferior infarct, old Confirmed by Melo Flores ([id number]) on 09/27/2018 7:34:36 PM Referred By: Melo Flores Confirmed By:Melo Flores
[2018-09-27] MEDS ORDERED: IOPAMIDOL (ISOVUE 370) 100 ML BTL IV ONE (19:49)
[2018-09-27 19:55] LABS: PLATELET COUNT 281 10^3/uL (150-400)
[2018-09-27 20:03] LABS: PROTIME(PATIENT) 12.8 SEC (12.0-15.0)
[2018-09-27] MEDS ORDERED: amLODIPine BESYLATE 5 MG TAB PO ONE (20:31)
[2018-09-27] MEDS ORDERED: HYDROCODONE/APAP 5/325 TAB PO PRN (21:44)
[2018-09-27] MEDS ORDERED: ACETAMINOPHEN 325 MG TAB PO PRN (21:44)
[2018-09-27] MEDS ORDERED: ONDANSETRON 4 MG/2 ML VIAL IVP PRN (21:44)
[2018-09-27] MEDS ORDERED: hydrALAZINE 20 MG/ML VIAL IVP PRN (21:44)
[2018-09-27] MEDS ORDERED: ONDANSETRON DISINTEGRATING 4 MG TAB PO PRN (21:44)
[2018-09-27] MEDS ORDERED: PROMETHAZINE HCL 25 MG/ML INJ IVP PRN (21:44)
[2018-09-27] MEDS ORDERED: oxyCODONE IR 5 MG TAB PO PRN (21:44)
[2018-09-27] MEDS ORDERED: HYDROmorphONE/DILAUDID 1 MG/ML INJ IVP PRN (21:44)
[2018-09-27] MEDS ORDERED: LABETALOL HCL 5 MG/ML 20 ML MDV IVP PRN (21:48)
--- NOTE | 2018-09-27 21:49 | PDGENHP ---
History and Physical - Chief Complaint chest pain, elevated bp - History of Present Illness Patient is a 73 yo F who has a PMH of dementia and HTN that was recently noted to be increasing at PCP visit. She had been on labetalol only recently ( previously on both lisinopril and labetalol) and when BP noted to be 160/100 at PCP, lisinopril was restarted per PCP note--patient however states she had been taking only lisinopril, and recently resumed labetalol. Either way, she felt that she got worse after starting the new medication, and particularly felt as if she began to have increased difficulty concentrating and generally felt poorly which she thought was likely due to her BP. Today this progressed to where she felt as if she could not follow conversations and she began to develop right sided chest pain with radiation to the back along with a headache. She came to ER where CTA ruled out dissection, but BP was noted to be in the 200s/100s. She notes that the chest pain has resolved but her headache is still present, relatively mild. She notes she has recently been diagnosed with dementia and that since then she has stopped driving and is walking a lot more. In discussion with her, she is mostly quite clear but has e/o short term memory loss and frequently repeats something she had just said. History Information - Allergies/Home Medication List Allergies/Adverse Reactions: Penicillins Allergy (Intermediate, Verified 09/27/18 19:04) gluten Allergy (Mild, Verified 09/27/18 23:09) cheese Allergy (Verified 09/27/18 19:04) Milk Containing Products [dairy] Allergy (Verified 09/27/18 19:04) Home Medications: Herbals/Supplements -Info Only 4 ea PO TIDMEAL 02/01/15 [Last Taken 09/27/18] QUEtiapine FUMARATE [Seroquel 25 mg (*)] 25 mg PO HS 02/01/15 [Last Taken ] Lisinopril [Zestril 10 mg (*)] 10 mg PO DAILY 09/08/15 [Last Taken 09/27/18] Labetalol HCl [Trandate 100 mg (*)] 150 mg PO BID 09/06/16 [Last Taken 09/27/18] I have personally reviewed and updated: family history, medical history, social history, surgical history - Past Medical History dementia, hypertension, hyperlipidemia, migraines, psychiatric history Additional medical history: Paget's disease of the bone. B12 deficiency - Surgical History Reports: hysterectomy Additional surgical history: cataract - Family History Positive for: CAD (father, grandfather and sister), stroke (mother with multiple strokes) Additional family history: son committed suicide - Social History Smoking Status: Former smoker Alcohol Use: None Drug Use: None Additional social history: lives alone, has one living child, Review of Systems Review of Systems: ROS: 10pt was reviewed & negative except for what was stated in HPI & below Physical Exam Physical Exam: Temp Pulse Resp BP Pulse Ox 37.2 C 63 18 205/118 H 94 09/27/18 21:39 09/27/18 21:39 09/27/18 21:39 09/27/18 21:39 09/27/18 21:39 Constitutional: no apparent distress, appears nourished Eyes: PERRL, anicteric sclera Ears, Nose, Mouth, Throat: moist mucous membranes, hearing normal Cardiovascular: regular rate and rhythym, no murmur, rub, or gallop, No edema Respiratory: no respiratory distress, no rales or rhonchi Gastrointestinal: normoactive bowel sounds, soft, non-tender abdomen Genitourinary: no bladder tenderness Skin: warm, normal color Musculoskeletal: no muscle tenderness, No asymmetric calves Neurologic: AAOx3 Psychiatric: interacting appropriately, not anxious, poor memory Lab Data & Imaging Review 09/27/18 19:35 09/27/18 19:35 WBC 7.74 10^3/uL (3.80-9.50) 09/27/18 19:35 RBC 4.83 10^6/uL (4.18-5.33) 09/27/18 19:35 Hgb 14.8 g/dL (12.6-16.3) 09/27/18 19:35 POC Hgb 15.3 gm/dL (12.6-16.3) 09/27/18 19:48 Hct 44.1 % (38.0-47.0) 09/27/18 19:35 POC Hct 45 % (38-47) 09/27/18 19:48 MCV 91.3 fL (81.5-99.8) 09/27/18 19:35 MCH 30.6 pg (27.9-34.1) 09/27/18 19:35 MCHC 33.6 g/dL (32.4-36.7) 09/27/18 19:35 RDW 13.4 % (11.5-15.2) 09/27/18 19:35 Plt Count 281 10^3/uL (150-400) 09/27/18 19:35 MPV 11.2 fL (8.7-11.7) 09/27/18 19:35 Neut % (Auto) 68.7 % (39.3-74.2) 09/27/18 19:35 Lymph % (Auto) 18.1 % (15.0-45.0) 09/27/18:35 Mineral % (Auto) 11.0 % (4.5-13.0) 09/27/18 19:35 Eos % (Auto) 1.2 % (0.6-7.6) 09/27/18:35 Baso % (Auto) 0.6 % (0.3-1.7) 09/27/18: Nucleat RBC Rel Count 0.0 % (0.0-0.2) 09/27/18 19:35 Absolute Neuts (auto) 5.32 10^3/uL (1.70-6.50) 09/27/18 19:35 Absolute Lymphs (auto) 1.40 10^3/uL (1.00-3.00) 09/27/18 19:35 Absolute Monos (auto) 0.85 10^3/uL (0.30-0.80) H 09/27/18: Absolute Eos (auto) 0.09 10^3/uL (0.03-0.40) 09/27/18:35 Absolute Basos (auto) 0.05 10^3/uL (0.02-0.10) 09/27/18:35 Absolute Nucleated RBC 0.00 10^3/uL (0-0.01) 09/27/18 19:35 Immature Gran % 0.4 % (0.0-1.1) 09/27/18 19:35 Immature Gran # 0.03 10^3/uL (0.00-0.10) 09/27/18 19:35 PT 12.8 SEC (12.0-15.0) 09/27/18 19:35 INR 1.00 (0.83-1.16) 09/27/18 19:35 APTT 33.0 SEC (23.0-38.0) 09/27/18 19:35 POC Sodium 143 mEq/L (135-145) 09/27/18 19:48 Sodium 139 mEq/L (135-145) 09/27/18 19:35 POC Potassium 3.6 mEq/L (3.3-5.0) 09/27/18 19:48 Potassium 3.8 mEq/L (3.5-5.2) 09/27/18 19:35 POC Chloride 108 mEq/L (97-110) 09/27/18 19:48 Chloride 108 mEq/L (97-110) 09/27/18 19:35 Carbon Dioxide 21 mEq/l (22-31) L 09/27/18 19:35 POC Total CO2 23 mEq/L (22-31) 09/27/18 19:48 Anion Gap 10 mEq/L (6-14) 09/27/18 19:35 POC BUN 18 mg/dL (7-23) 09/27/18 19:48 BUN 19 mg/dL (7-23) 09/27/18 19:35 Creatinine 1.0 mg/dL (0.6-1.0) 09/27/18 19:35 POC Creatinine 1.0 mg/dL (0.6-1.0) 09/27/18 19:48 Estimated GFR 54 09/27/18 19:35 Glucose 93 mg/dL (70-100) 09/27/18 19:35 POC Glucose 95 mg/dL (70-100) 09/27/18 19:48 Calcium 9.5 mg/dL (8.5-10.4) 09/27/18 19:35 POC Troponin I 0.01 ng/mL (0.00-0.08) 09/27/18 19:45 Visualized and Interpreted Chest x-ray results: Yes Chest X-Ray results: other (atelectasis) Visualized and Interpreted imaging results: Yes Interpretation: CTA chest: no dissection or aneurysm, mild CM, thyroid nodule Visualized and Interpreted EKG results: Yes EKG Interpretation: Positive for: normal sinsus rhythm, Q waves (inferior) Assessment & Plan Assessment: Chest pain (Acute) Hypertension (Acute) 73 yo F with PMH of HTN, dementia presenting with hypertensive urgency # hypertensive urgency: in discussion with patient and review of records, sounds like BP has been increasing over the last days to weeks, she was started on lisinopril in addition to labetalol but patient with confusion about what she should be taking and she was concerned the meds were making things worse, so not clear compliance was good. Given labetalol IVP in ER and will resume home meds of labetalol and lisinopril as well as prn hydralazine/IVP labetalol for goal of SBP 170-180 overnight. No e/o end organ dysfunction. Will get echo in am for further evaluation # dementia: patient notes that this was recently diagnosed, lots of lifestyle changes due to this, relatively mild but short term memory issues evident # thyroid nodules: with US and biopsy performed several years ago, radiology recommending that US and potentially biopsy be repeated as her pathology results were inconclusive, this can be deferred to OP setting. TSH recently checked and wnl. # EDUARDO: with hx of migraine and EDUARDO improving, no focal neuro findings # anxiety: continue seroquel # observation status # Patient new to my care. Old records reviewed and summarized as above. Care plan reviewed with ER doctor as above.
[2018-09-27] MEDS: QUEtiapine FUMARATE 25 MG TAB PO SCH (23:32)
[2018-09-28 05:28] LABS: PLATELET COUNT 269 10^3/uL (150-400)
[2018-09-28] MEDS ORDERED: LABETALOL HCL 100 MG TAB PO SCH (09:00)
[2018-09-28] MEDS ORDERED: LISINOPRIL 10 MG TAB PO SCH (09:00)
[2018-09-28] MEDS ORDERED: IBUPROFEN 200 MG TAB PO PRN (09:46)
[2018-09-28] MEDS: FIBER SMART PO SCH ×3 (09:47→18:55)
--- NOTE | 2018-09-28 11:40 | ASMTCMCOM ---
CM Note CM Note Notes: Reviewed chart and d/s w/ RN. Pt lives alone, has a new diagnosis of dementia. Was sent by PCP office for hypertensive crises. PT/OT eval pending DC Plan: TBD Date Signed: 09/28/2018 11:38 AM Electronically Signed By:Nola Aguilar RN
--- NOTE | 2018-09-28 11:41 | HOSPPROG ---
Hospitalist Progress Note Assessment/Plan: #Hypertensive urgency: last clinic note BP 160/100. Did not tolerate Labetalol. SBP >200 here in ED. -SBP 132 this morning. Goal today 160-170s. Rather than using Labetalol, will increase Lisinopril, only on 10mg -will change dose tomorrow morning. #Headache: likely from quick reduction in BP #Dementia: recently diagnosed #Thyroid nodules: previously biopsied. Should have repeat per radiology, recent TSH WML. Can be done outpatient #Anxiety: home meds #Diet: regular #DVT ppx: Inpatient admission for BP control, close monitoring Addendum: dizzy with headache this afternoon. Given age and risk for fall, will monitor overnight to adjust BP meds Subjective: headache this morning Objective: Vital Signs Temp Pulse Resp BP Pulse Ox 36.6 C 65 14 167/101 H 90 L 09/28/18 08:00 09/28/18 08:24 09/28/18 08:00 09/28/18 08:24 09/28/18 08:00 Laboratory Results 09/28/18 04:59 09/28/18 04:59 PT 12.8 SEC (12.0-15.0) 09/27/18 19:35 INR 1.00 (0.83-1.16) 09/27/18 19:35 - Time Spent With Patient Time Spent with Patient: greater than 35 minutes Time Spent with Patient: Greater than 35 minutes spent on this patients care, greater than 50% of time spent counseling, educating, and coordinating care regarding the above mentioned plan. - Physical Exam Constitutional: no apparent distress Eyes: PERRL Ears, Nose, Mouth, Throat: moist mucous membranes Cardiovascular: regular rate and rhythym, No edema Respiratory: no respiratory distress Gastrointestinal: normoactive bowel sounds Genitourinary: no bladder fullness Musculoskeletal: full muscle strength Neurologic: AAOx3, CN II-XII Intact Psychiatric: poor memory ICD10 Worksheet Patient Problems: Problems Problem Status Onset Chest pain Acute Hypertension Acute Chest pain of uncertain etiology Acute
--- NOTE | 2018-09-28 12:29 | ECHO ---
[email or web address] [address] Main: [phone] Echocardiography Examination Transthoracic Name: MEENAKSHI MCDONNELL MR#: [id number] Study Date: 09/28/2018 Study Time: 08:27 AM Date of : 1945 Age: 73 year(s) Height: 162.6 cm (64 in.) Weight: 63.5 kg (140 lb.) BSA: 1.68 m2 Gender: Female Examination: Echo Contrast: Image Quality: Adequate Rhythm: Heart Rate: BP: 167 mmHg/101 mmHg Indication: hypertensive urgency Procedure Staff Referring Physician: External Auditor: Raiza Newman [facility] Reading Physician: Venkat Enriquez MD Requesting Provider: Ordering Physician: Ventura Chow Indication: hypertensive urgency Measurements Chambers AV/MV Label Value Normal Value Label Value Normal Value LVOTd 1.9 cm (1.8cm - 2cm) AR PHT 0.39 s LVOT VTI 28.2 cm (18cm - 22cm) AR PHT 387 ms LVDd, 2D 4.2 cm (3.9cm - 5.3cm) AR Vmax 4.44 m/s LVDs, 2D 2.9 cm (2.1cm - 4cm) AV PGmax 15 mmHg IVSd, 2D 1.1 cm (0.6cm - 1.1cm) AV PGmean 9 mmHg LVPWd, 2D 1.1 cm AV Vmax 1.91 m/s LVEF, BP 63 % (55% - 70%) NANDO (VTI) 2 cm2 LVEF, 2D 59 % (54% - 74%) MV E Vmax 0.86 m/s LVOT PGmean 5 mmHg MV A Vmax 0.93 m/s LVOT Vmean 1.03 m/s MV E/A 0.92 RVDd, 2D 3.8 cm (1.9cm - 3.8cm) MV E/E' lateral 15.2 LA Volume, BP 55 ml (22ml - 52ml) MV E/E' septal 16 (0.45 - 1.25) LADs, 2D 4.2 cm (2.7cm - 3.8cm) MV DT 275 ms LAESV index, BP 32.7 ml/m2 MV E' septal 0.05 m/s RA Area 16.8 cm2 MV PHT 0.09 s Additional Vessels MVA PHT 2.4 cm2 Label Value Normal Value MV E' lateral 0.06 m/s AoAsc 3.4 cm MV E/E' mean 15.64 AoRoot, 2D 2.8 cm (1.4cm - 2.6cm) MV PHT 92 ms Patient: MEENAKSHI MCDONNELL Study Date: 09/28/2018 Page 1 of 3 08:27 AM IVC 1.4 cm (1.2cm - 2.3cm) MV E' mean 0.06 m/s TV/PV Label Value Normal Value RA Pressure 5 mmHg RVSP 27 mmHg TR Pmax 22 mmHg TR Vmax 2.33 m/s PV PGmax 3 mmHg PV Vmax, Caliper 0.9 m/s (0.6m/s - 0.9m/s) Conclusions Left Ventricle: The ejection fraction, measured by Simpsons method, is 63 %. There are no regional wall motion abnormalities. No LV hypertrophy. Right Ventricle: Right ventricular systolic function is normal. Mitral Valve: Mild to moderate mitral regurgitation. Aortic Valve: Mild aortic regurgitation is present. Tricuspid Valve: Mild tricuspid regurgitation. Right Ventricular systolic pressure is measured at 27 mmHg. Findings Left Ventricle: Left ventricle is normal in size. Normal global systolic left ventricular function. The ejection fraction, measured by Simpsons method, is 63 %. EF range is estimated at 60 % - 65 %. Left ventricle wall thickness is normal. There are no regional wall motion abnormalities. Diastolic Dysfunction is indeterminate. No LV hypertrophy. Right Ventricle: Normal size right ventricle. Right ventricular systolic function is normal. Left Atrium: The left atrium is normal in size. Right Atrium: The right atrium is normal in size. Mitral Valve: Mitral valve appears structurally normal. Mild to moderate mitral regurgitation. No mitral valve stenosis. Aortic Valve: Aortic leaflets are structurally normal. Mild aortic regurgitation is present. There is no aortic stenosis. Tricuspid Valve: Tricuspid valve leaflets are structurally normal. Mild tricuspid regurgitation. No tricuspid valve stenosis. Right Ventricular systolic pressure is measured at 27 mmHg. Pulmonary artery pressure normal. Pulmonic Valve: Pulmonic leaflets are structurally normal. No significant pulmonic valve regurgitation is evident. Aorta: The aortic root size in 2D measures 2.8 cm. The ascending aorta measures 3.4 cm. Patient: MEENAKSHI MCDONNELL Study Date: 09/28/2018 Page 2 of 3 08:27 AM Aorta Measurements AoRoot, 2D is 2.8 cm. IVC: The inferior vena cava is normal in size. Pericardium: A pericardial fat pad is present. No pericardial effusion. Exam Details Procedure Ordered: Echo Procedure Status: Routine study Image Quality: Adequate Facility Location: Bedside (No Signature Object) Patient: MEENAKSHI MCDONNELL Study Date: 09/28/2018 Page 3 of 3 08:27 AM [id number]
[2018-09-28] MEDS ORDERED: hydrALAZINE 20 MG/ML VIAL IVP PRN (14:46)
[2018-09-28] MEDS: QUEtiapine FUMARATE 25 MG TAB PO SCH (21:51)
[2018-09-29] MEDS: FIBER SMART PO SCH ×3 (08:41→20:27)
[2018-09-29] MEDS: LISINOPRIL 20 MG TAB PO SCH (08:41)
--- NOTE | 2018-09-29 10:00 | HOSPPROG ---
Hospitalist Progress Note Assessment/Plan: DIAGNOSES: * Hypertensive urgency with symptoms (acute encephalopathy/confusion, headache, chest pain, increase intensity of chronic tinnitus) -blood pressures are labile with some fairly high numbers as well as numbers lower than desired at this time -headache has not yet resolved, and still having more intense tinnitus than usual -chest discomfort completely resolved -encephalopathy symptoms completely resolved * "dementia": My interaction with her today displays minimal if any signs of dementia * History of thyroid nodules previously biopsied with indeterminate result -repeat imaging in biopsies had been recommended at the time but this has not been done as of yet * Chronic anxiety disorder on Seroquel PLANS: * Continue to titrate blood pressure medicines carefully here; home 1-2 days when clearly stable -will add low-dose of chlorthalidone at this time * Will stop ibuprofen as NSAIDs can inhibit the effect of Colby inhibitors * Referral to primary care to arrange reassessment of her thyroid nodules SUBJECTIVE: Overall feeling better but still having some headache, generalized without associated neurologic symptoms, and still having increase in her chronic tinnitus from baseline Chest pain and confusion have resolved OBJECTIVE Vitals reviewed: Blood pressures in the last 12 hr with the low of 117 systolic high of 185 Exam: alert oriented very talkative, relaxed skin warm dry color ok resps not labored lungs clear BSs heart regular abd soft nondistended nontender, bowel sounds present limbs warm, no edema iv site ok Objective: Vital Signs Temp Pulse Resp BP Pulse Ox 36.5 C 81 12 164/89 H 93 09/29/18 07:46 09/29/18 07:46 09/29/18 07:46 09/29/18 07:46 09/29/18 07:46 Laboratory Results 09/28/18 04:59 09/28/18 04:59 09/28/18 09/29/18 09/30/18 06:59 06:59 06:59 Intake Total 200 Output Total 1100 400 Balance -900 -400 PT 12.8 SEC (12.0-15.0) 09/27/18 19:35 INR 1.00 (0.83-1.16) 09/27/18 19:35 - Time Spent With Patient Time Spent with Patient: greater than 35 minutes Time Spent with Patient: Greater than 35 minutes spent on this patients care, greater than 50% of time spent counseling, educating, and coordinating care regarding the above mentioned plan. ICD10 Worksheet Patient Problems: Problems Problem Status Onset Chest pain Acute Hypertension Acute Chest pain of uncertain etiology Acute
[2018-09-29] MEDS: CHLORTHALIDONE 25 MG TAB PO SCH (10:56)
[2018-09-29] MEDS: QUEtiapine FUMARATE 25 MG TAB PO SCH (22:48)
[2018-09-29] MEDS ORDERED: traMADol 50 MG TAB PO PRN (22:57)
[2018-09-30] MEDS: FIBER SMART PO SCH ×3 (08:18→18:23)
[2018-09-30] MEDS: CHLORTHALIDONE 25 MG TAB PO SCH (08:18)
[2018-09-30] MEDS: LISINOPRIL 20 MG TAB PO SCH (08:18)
--- NOTE | 2018-09-30 13:39 | HOSPPROG ---
Hospitalist Progress Note Assessment/Plan: 73y female with c/o confusion and headache. First encounter, chart reviewed. #Hypertensive urgency with symptoms (acute encephalopathy/confusion, headache, chest pain, increase intensity of chronic tinnitus) -blood pressures are labile with some fairly high numbers as well as numbers lower than desired at this time -headache resolved, and still having more intense tinnitus than usual -chest discomfort completely resolved -encephalopathy symptoms completely resolved -added norvasc #dementia: -My interaction with her today displays minimal if any signs of dementia -short term memory issues #History of thyroid nodules previously biopsied with indeterminate result -repeat imaging in biopsies had been recommended at the time but this has not been done as of yet -fu PCP #Chronic anxiety disorder -on Seroquel PLANS: * Continue to titrate blood pressure medicines carefully here; home 1-2 days when clearly stable -will cont low-dose of chlorthalidone at this time -add norvasc * stop ibuprofen as NSAIDs can inhibit the effect of Colby inhibitors * Referral to primary care to arrange reassessment of her thyroid nodules Subjective: Feeling better today. Eager to get out of bed. Had some nausea after eating. Objective: Vital Signs Temp Pulse Resp BP Pulse Ox 36.3 C 68 15 173/87 H 93 09/30/18 07:33 09/30/18 07:33 09/30/18 07:33 09/30/18 13:09 09/30/18 07:33 Laboratory Results 09/28/18 04:59 09/28/18 04:59 09/29/18 09/30/18 10/01/18 05:59 05:59 05:59 Intake Total 200 1790 Output Total 1100 4450 500 Balance -900 -2660 -500 PT 12.8 SEC (12.0-15.0) 09/27/18 19:35 INR 1.00 (0.83-1.16) 09/27/18 19:35 - Physical Exam Constitutional: no apparent distress, appears nourished, not in pain Eyes: PERRL, anicteric sclera, EOMI Ears, Nose, Mouth, Throat: moist mucous membranes, hearing normal, ears appear normal Cardiovascular: regular rate and rhythym, No JVD, No edema Respiratory: no respiratory distress, no rales or rhonchi, reduced air movement Gastrointestinal: normoactive bowel sounds, No tenderness, No ascites Skin: warm, normal color, No mottled Musculoskeletal: normal joint ROM, no joint effusions, generalized weakness Neurologic: AAOx3 Psychiatric: interacting appropriately, not anxious, not encephalopathic, poor memory ICD10 Worksheet Patient Problems: Problems Problem Status Onset Chest pain of uncertain etiology Acute Chest pain Acute Hypertension Acute
[2018-09-30] MEDS: amLODIPine BESYLATE 5 MG TAB PO SCH (14:53)
[2018-09-30] MEDS: QUEtiapine FUMARATE 25 MG TAB PO SCH (20:52)
[2018-10-01] MEDS: amLODIPine BESYLATE 5 MG TAB PO SCH (08:38)
[2018-10-01] MEDS: LISINOPRIL 20 MG TAB PO SCH (08:39)
[2018-10-01 08:41] VITALS: BP 142/81
[2018-10-01] MEDS: FIBER SMART PO SCH (08:41)
[2018-10-01] MEDS: CHLORTHALIDONE 25 MG TAB PO SCH (08:43)
--- NOTE | 2018-10-01 10:31 | ASMTLACE ---
LACE Length of stay for Answers: 3 days current admission Comorbidities - select Answers: Dementia all that apply Other Notes: HTN; HLD # of Emergency department Answers: 1-2 visits in the last 6 months Social determinants Answers: Mental health diagnosis (anxiety, depression, pers onality disorders, etc.) Score: 11 Date Signed: 10/01/2018 10:29 AM Electronically Signed By:Anahi Shrestha RN
--- NOTE | 2018-10-01 10:53 | ASMTCMCOM ---
CM Note CM Note Notes: Patient has been medically cleared for discharge to home independently. No current needs. CM available should needs arise. Plan: Dc to home Date Signed: 10/01/2018 10:52 AM Electronically Signed By:Anahi Shrestha RN
--- NOTE | 2018-10-01 12:43 | GDS ---
[f rep st] DISCHARGE SUMMARY DISCHARGE DIAGNOSES: 1. Hypertensive urgency with symptoms. 2. Dementia. 3. History of thyroid nodules. 4. Chronic anxiety disorder. STUDIES AND PROCEDURES: 1. CT angiogram of the chest. 2. Echocardiogram. PHYSICAL EXAM: GENERAL: The patient is alert. VITAL SIGNS: Afebrile at 36.5, pulse is 66, respira tory rate is 16, blood pressure is 142/81. She is saturating 90% on room air. HOSPITAL COURSE: The patient is a 73-year-old female who presented to the emergency room with compla ints of confusion and headache. She was evaluated and diagnosed with: 1. Hypertensive urgency with symptoms. During this hospitalization, the patient represented acute e ncephalopathy as well as confusion, headache, chest discomfort. Her symptoms have resolved, and her blood pressure is well managed. Her blood pressure medications have been adjusted during this hospit alization, and she has been provided prescriptions at the time of disposition for new antihypertensiv e medications. 2. Dementia. The patient is aware of this diagnosis. She does have short-term memory issues, and s he is managing in the outpatient setting. 3. History of thyroid nodules. These have previously been biopsied. She will require followup with her primary care physician. 4. Chronic anxiety disorder. She is on Seroquel, and this appears to be fairly well controlled. DISPOSITION: She will be discharged home independently. There are no pending studies. DISCHARGE MEDICATIONS: Please refer to EMR form. I have provided prescriptions for Norvasc 5 mg liza ly, chlorthalidone 25 mg daily, lisinopril 20 mg daily. The patient's previously prescribed labetalo l 150 mg p.o. b.i.d. as well as lisinopril 10 mg daily have been discontinued. FOLLOWUP: She has been instructed to keep a blood pressure journal at home and [facility], Marla Falk PA-C, within the next week. She is in agreement with this plan. She feels as though she has returned to baseline, and she is eager to be discharged home. TIME SPENT WITH PATIENT: I spent greater than 35 minutes in the care, coordination, and management o f this patient's disposition. /[id number]/MODL
--- NOTE | 2018-10-05 17:07 | CPEKG ---
Test Reason : OPEN Blood Pressure : / mmHG Vent. Rate : 069 BPM Atrial Rate : 069 BPM P-R Int : 187 ms QRS Dur : 084 ms QT Int : 405 ms P-R-T Axes : 040 -42 029 degrees QTc Int : 434 ms Sinus rhythm Inferior infarct, old Confirmed by Won Boles ([id number]) on 10/05/2018 5:07:12 PM Referred By: Ventura Chow Confirmed By:Won Boles
== END 2018-10-01 11:22 | disposition home or self-care (01) ==
LOC: INTOOBSV 20:27 → F3E 21:29
PROVIDERS: ADMIT Internal Medicine; ATTEND Internal Medicine Cardiovascular Disease
DX: I16.0 Hypertensive urgency (principal); F03.90 Unspecified dementia, unspecified severity, without behavioral disturbance, psychotic disturbance, mood disturbance, and anxiety; R51 Headache; F41.8 Other specified anxiety disorders; Z87.898 Personal history of other specified conditions
CPT/HCPCS: 71045; 71275; 93005; 93306; 96374; 96375; 97161; 97165; 97530; 99285; G0378; J0360; Q9967; 82435-PO; 82565-PO; 82947-PO; 84132-PO; 84295-PO; 84484-ER; 84520-PO; 85014-ER

== ENCOUNTER 2018-10-13 15:33 | Inpatient (IN) | payer OTHER | END 2018-10-16 14:33 | disposition home or self-care (01) | LOC: F1N 20:39 ==